=== PATIENT | male | born 1960 | race Caucasian/White ===

== ENCOUNTER 2022-09-26 12:18 | Emergency (ER) | payer BC ==
[2022-09-26 12:28] VITALS: RESP 18
--- NOTE | 2022-09-26 12:36 | ED ---
General Adult HPI - General Chief complaint: Extremity Injury, Lower Stated complaint: Rt knee/Fall Time Seen by Provider: 09/26/22 12:36 Source: patient, EMS Mode of arrival: EMS Limitations: no limitations - History of Present Illness Initial comments: Patient presents to the ED by ambulance for evaluation. Patient states that he fell asleep in his chair at home this morning, and he accidentally fell out of his chair. Patient states that he landed on his bilateral knees, and he states that it took him about 20 minutes before he could get up on his own. Patient states that every time he tried to ambulate after that, his bilateral knees would "buckle", and so he called for an ambulance. Patient states that the last time that he attempted to walk was about an hour ago. Patient denies having any knee pain or any pain whatsoever. Patient states that he felt fine earlier today and yesterday prior to this fall. Patient denies fever or chills, headache, focal numbness/weakness/neuro deficit, neck/back/upper extremity/hip pain, chest pain or pressure, dyspnea, cough or cold symptoms, palpitations, dizziness, abdominal pain, nausea/vomiting/diarrhea, bloody or melanotic stool, dysuria or urinary symptoms, or any other symptoms or complaints. - Related Data Allergies Allergy/AdvReac Type Severity Reaction Status Date / Time No Known Allergies Allergy Verified 09/26/22 12:28 Review of Systems ROS Statement: Those systems with pertinent positive or pertinent negative responses have been documented in the HPI. ROS Other: All systems not noted in ROS Statement are negative. Past Medical History Past Medical History: Hypertension History of Any Multi-Drug Resistant Organisms: None Reported Additional Past Surgical History / Comment(s): Bilat cataract surgery Past Psychological History: No Psychological Hx Reported Smoking Status: Never smoker Past Alcohol Use History: None Reported Past Drug Use History: None Reported General Exam Limitations: no limitations General appearance: alert, in no apparent distress Head exam: Present: atraumatic, normocephalic Eye exam: Present: normal appearance, EOMI ENT exam: Present: mucous membranes moist Neck exam: Present: other (Trachea is in midline). Absent: tenderness Respiratory exam: Present: normal lung sounds bilaterally. Absent: respiratory distress, wheezes, rales, rhonchi, stridor Cardiovascular Exam: Present: regular rate, normal rhythm, normal heart sounds, other (Normal radial and dorsalis pedis pulses bilaterally) GI/Abdominal exam: Present: soft. Absent: tenderness, guarding Extremities exam: Present: full ROM, other (Patient has full range of motion at bilateral hips and bilateral knees without any pain/difficulty; patient has no hip or knee tenderness). Absent: tenderness, pedal edema, calf tenderness Back exam: Absent: tenderness Neurological exam: Present: alert, oriented X3, CN II-XII intact. Absent: motor sensory deficit Psychiatric exam: Present: normal affect, normal mood Skin exam: Present: warm, dry, intact, normal color Course Vital Signs 09/26/22 12:20 Temperature 98.8 F Pulse Rate 106 H Respiratory 18 Rate Blood Pressure 132/86 O2 Sat by Pulse 96 Oximetry - Reevaluation(s) Reevaluation #1: 09/26/22 15:04 Patient is now able to ambulate on his own in the ED without any difficulty. Patient continues to deny having any pain. Patient is aware of his x-ray f indings, and he feels comfortable being discharged home at this time. Patient was counseled about falls and knee contusions. Patient was clearly explained return and follow-up instructions, and he feels comfortable with this plan. Medical Decision Making - Medical Decision Making Patient's bilateral knee x-rays do not demonstrate any acute osseous abnormality. Patient has been ambulatory in the ED on his own without difficulty. Will discharge patient home at this time. - Radiology Data Bilateral knee x-rays: 1. Right: Anterior soft tissue swelling with trace joint effusion. No acute osseous abnormality seen. 2. Left: Small knee joint effusion. If concern for internal derangement, MRI can be performed. No acute osseous abnormality seen. Disposition Clinical Impression: Fall, Knee contusion Disposition: HOME SELF-CARE Condition: Stable Instructions (If sedation given, give patient instructions): Contusion in Adults (ED), Fall Prevention (ED) Additional Instructions: Return to the ER immediately should you develop new or worsening pain or symptoms. Follow up closely with your primary care provider. Is patient prescribed a controlled substance at d/c from ED?: No Referrals: None,Stated [REFERRING] - 1-2 days Vern Carrasco DO [STAFF PHYSICIAN] - 1-2 days Time of Disposition: 15:06
--- NOTE | 2022-09-26 13:26 | XR ---
EXAMINATION TYPE: XR knee complete bilateral DATE OF EXAM: 09/26/2022 COMPARISON: NONE HISTORY: 62-year-old male pain after fall, knee injuries TECHNIQUE: 3 views each side FINDINGS: There is some anterior soft tissue swelling on the right. Trace to small knee joint effusions on both sides. However, no lipohemarthrosis. No acute fracture, subluxation, dislocation seen. Extensor mech anisms appear intact. IMPRESSION: 1. Right: Anterior soft tissue swelling with trace joint effusion. No acute osseous abnormality seen. 2. Left: Small knee joint effusion. If concern for internal derangement, MRI can be performed. No acu te osseous abnormality seen.
[2022-09-26 15:07] VITALS: BP 155/103; PULSE 98; TEMP 97.5
== END 2022-09-26 15:12 | disposition home or self-care (01) ==
LOC: EC 12:18
DX: S80.01XA Contusion of right knee, initial encounter (principal); I10 Essential (primary) hypertension; W07.XXXA Fall from chair, initial encounter
CPT/HCPCS: 99283

== ENCOUNTER 2024-03-13 10:31 | Day surgery (SDC) | payer BC ==
[~2024-03-13 10:31] MED LIST: LIDOCAINE 1% (10MG/ML) FOR IV START INTRADERMA PRN
[2024-03-13] MEDS: IV FLUID CONTINUATION 1,000 ML IV ONE (10:39)
[2024-03-13] MEDS: LACTATED RINGERS 1,000 ML IV SCH (10:40)
[2024-03-13 10:50] VITALS: RESP 16; TEMP 99.4
[2024-03-13] MEDS ORDERED: PROPOFOL 10 MG/ML 20 ML VIAL IV ONE (11:54)
--- NOTE | 2024-03-13 12:00 | P.GSHP ---
History of Present Illness H&P Date: 03/13/24 Chief Complaint: screening colonoscopy this a 63-year-old male presents today for screening colonoscopy. Patient denies a significant GI complaints. 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 History of Any Multi-Drug Resistant Organisms: None Reported Additional Past Surgical History / Comment(s): Bilat cataract surgery Additional Past Anesthesia/Blood Transfusion Reaction / Comment(s): has never had anesthesia Smoking Status: Never smoker Medications and Allergies Home Medications Medication Instructions Recorded Confirmed Type Acetaminophen Tab [Tylenol Tab] 1,000 mg PO Q6HR PRN 03/09/24 03/13/24 History Cholecalciferol (Vitamin D3) 1 tab PO DAILY 03/09/24 03/13/24 History [Vitamin D3 (125 MCG = 5,000 IU)] Doxazosin Mesylate 8 mg PO QAM 03/09/24 03/13/24 History Multivit/Iron Sulf/Folic Acid 1 tab PO DAILY 03/09/24 03/13/24 History [Multivitamin with Iron] amLODIPine BESYLATE 5 mg PO QAM 03/09/24 03/13/24 History lisinopriL [Zestril] 10 mg PO QAM 03/09/24 03/13/24 History Allergies Allergy/AdvReac Type Severity Reaction Status Date / Time No Known Allergies Allergy Verified 03/13/24 11:01 Surgical - Exam Vital Signs Temp Pulse Resp BP Pulse Ox 99.4 F 94 16 140/79 97 03/13/24 10:49 03/13/24 10:49 03/13/24 10:49 03/13/24 10:49 03/13/24 10:49 - General well developed, well nourished, no distress - Eyes PERRL - ENT normal pinna, normal nares, normal mucosa - Neck no masses - Respiratory normal expansion - Cardiovascular Rhythm: regular - Abdomen Abdomen: soft, non tender Assessment and Plan Assessment: we'll perform screening colonoscopy.
--- NOTE | 2024-03-13 12:21 | P.OP ---
Date of Procedure: 03/13/24 Preoperative Diagnosis: screening colonoscopy Postoperative Diagnosis: mild diverticulosis Procedure(s) Performed: colonoscopy Anesthesia: MAC Surgeon: Bridger Jackson Pathology: none sent Condition: stable Disposition: PACU Description of Procedure: the patient's placed on the endoscopy table in the lateral position. he received IV sedation. Digital rectal exam performed. This revealed no abnormalities. Flexible colonoscope was then placed patient anus and passed throughout the entire colon. The ileocecal valve visualized. The cecum, ascending and transverse colon appeared normal. In the descending and; there is mild diverticular changes. Scthe scope was then brought back the rectum and t his appeared normal. Scope was withdrawn from the patient.
[2024-03-13 12:43] VITALS: BP 123/75; PULSE 95
== END 2024-03-13 13:42 | disposition home or self-care (01) ==
LOC: ORWHC2ENDO 10:31
PROVIDERS: ATTEND Surgery
DX: Z12.11 Encounter for screening for malignant neoplasm of colon (principal); K57.30 Diverticulosis of large intestine without perforation or abscess without bleeding; I10 Essential (primary) hypertension; F17.200 Nicotine dependence, unspecified, uncomplicated; Z86.73 Personal history of transient ischemic attack (TIA), and cerebral infarction without residual deficits; Z79.899 Other long term (current) drug therapy
CPT/HCPCS: 45378; J2704